=== PATIENT | male | born 1990 | race Hispanic/Latino ===

== ENCOUNTER 2022-10-15 16:34 | Emergency (ER) | payer OTHER ==
[2022-10-15] MEDS ORDERED: LIDOCAINE 1% W/EPI 1:100,000 50 ML MDV ONE (16:54)
[2022-10-15] MEDS ORDERED: DERMABOND SKIN ADHESIVE TOP ONE (17:22)
--- NOTE | 2022-10-15 18:22 | RAD REPORT ---
EXAM DESCRIPTION: CT - Head Brain Wo Cont - 10/15/2022 6:00 pm CLINICAL HISTORY: Head injury. Head struck by gate COMPARISON: None TECHNIQUE: Computed axial tomography of the head was obtained. IV contrast was not requested. All CT scans are performed using dose optimization technique as appropriate and may include automated exposure control or mA/KV adjustment according to patient size. FINDINGS: Left occipital scalp laceration. An intracranial bleed is not seen The ventricles are normal in caliber No extra-axial fluid collection is noted. No significant hypodensity within the brain Fluid within the sinuses/ mastoids is not seen. IMPRESSION: No acute intracranial abnormality is seen If patient's symptoms persist MRI of the brain would be recommended
--- NOTE | 2022-10-15 18:33 | ER ---
Nurse's Notes [facility] Name: Iván Pagan Age: 32 yrs Sex: Male : 1990 Arrival Date: 10/15/2022 Time: 16:34 Bed 12 Private MD: Diagnosis: Laceration without foreign body of scalp;Facial Laceration/ Laceration without foreign body of cheek and temporomandibular area Presentation: 10/15 16:40 Chief complaint: EMS states: HEAD STRUCK BY GATE, LAC TO LEFT OCCIPUT AND RIGHT BROW. bp Coronavirus screen: At this time, the client does not indicate any symptoms associated with coronavirus-19. Ebola Screen: No symptoms or risks identified at this time. Initial Sepsis Screen: Does the patient meet any 2 criteria? No. Patient's initial sepsis screen is negative. Does the patient have a suspected source of infection? No. Patient's initial sepsis screen is negative. Risk Assessment: Do you want to hurt yourself or someone else? Patient reports no desire to harm self or others. Onset of symptoms was October 15, 2022 at 15:30. 16:40 Method Of Arrival: EMS bp 16:40 Acuity: MADDIE 3 bp Triage Assessment: 16:42 General: Appears in no apparent distress. Behavior is calm, cooperative, appropriate bp for age. Pain: Complains of pain in scalp. EENT: No deficits noted. Neuro: No deficits noted. Cardiovascular: No deficits noted. Respiratory: No deficits noted. GI: No signs and/or symptoms were reported involving the gastrointestinal system. : No signs and/or symptoms were reported regarding the genitourinary system. Derm: No deficits noted. Musculoskeletal: No deficits noted. Injury Description: Laceration sustained to scalp and outer aspect of right eyebrow. Historical: - Allergies: 16:42 No Known Allergies; bp - Home Meds: 16:42 None [Active]; bp - PMHx: 16:42 None; bp - Immunization history:: Adult Immunizations up to date, Last tetanus immunization: up to date. - Social history:: Smoking status: Patient denies any tobacco usage or history of. Screenin:43 [facility] ED Fall Risk Assessment (Adult) History of falling in the last 3 months, bp including since admission No falls in past 3 months (0 pts). Abuse screen: Denies threats or abuse. Denies injuries from another. Nutritional screening: No deficits noted. Tuberculosis screening: No symptoms or risk factors identified. Assessment: 16:43 General: SEE TRIAGE NOTE. bp 18:05 Reassessment: PT RETURNED FROM CT. bp 18:41 Reassessment: DC WITH [facility]. bp Vital Signs: 16:40 BP 112 / 72; Pulse 59; Resp 16; Temp 98.4; Pulse Ox 99% ; Weight 117.93 kg; bp ED Course: 16:38 Patient arrived in ED. bs3 16:39 Kirill Casanova MD is Attending Physician. bs3 16:40 Abdirahman Smith, RN is Primary Nurse. bp 16:42 Triage completed. bp 16:42 Arm band placed on. bp 16:43 Patient has correct armband on for positive identification. Bed in low position. Call bp light in reach. Side rails up X2. Adult w/ patient. Security at bedside. 18:02 CT Head Brain wo Cont In Process Unspecified. EDMS 18:41 Assist provider with laceration repair on outer aspect of right eyebrow and scalp. bp Patient did not have IV access during this emergency room visit. Administered Medications: 17:05 Drug: Lidocaine-Epinephrine Infiltration -1%: (1:100,000) 12 ml Volume: 20 ml; Route: bp Infiltration; Medication: 16:43 VIS not applicable for this client. bp Outcome: 18:32 Discharge ordered by . bs3 18:41 Discharged to Law Enforcement bp 18:41 Condition: stable 18:41 Discharge instructions given to patient, police, Instructed on discharge instructions, follow up and referral plans. wound care, Demonstrated understanding of instructions, follow-up care, wound care. 18:42 Patient left the ED. bp Signatures: Dispatcher [employer] EDMS Abdirahman Smith, RN RN Kirill Crowder MD MD bs3
--- NOTE | 2022-10-15 18:33 | EDPHYS ---
Physician Documentation [facility] Name: Iván Pagan Age: 32 yrs Sex: Male : 1990 Arrival Date: 10/15/2022 Time: 16:34 Bed 12 Private MD: ED Physician Kirill Casanova HPI: 10/15 16:42 This 32 yrs old Male presents to ER via EMS with complaints of head injury. bs3 16:42 32-year-old male no significant past medical history presents with laceration to his bs3 right eyebrow into the back of his head he states that his head got stuck in a sliding door in shelter he denies loss of consciousness but feels like there is a defect in the back of his scalp and it feels numb in this area he does not know the last time he got a tetanus shot but does not want one today he denies any other injuries. Historical: - Allergies: 16:42 No Known Allergies; bp - Home Meds: 16:42 None [Active]; bp - PMHx: 16:42 None; bp - Immunization history:: Adult Immunizations up to date, Last tetanus immunization: up to date. - Social history:: Smoking status: Patient denies any tobacco usage or history of. ROS: 16:42 Constitutional: Negative for fever, chills bs3 16:42 All other systems are negative. Exam: 16:42 Constitutional: This is a well developed, well nourished patient who is awake, alert, bs3 and in no acute distress. Head/Face: He has a 5 cm laceration on the posterior scalp he has 2 superficial lacerations to his right eyebrow Eyes: Pupils equal round and reactive to light, extra-ocular motions intact. Lids and lashes normal. ENT: mmm, no posterior phyarngeal erythema Neck: Trachea midline, no thyromegaly, no neck stiffness Chest/axilla: Normal chest wall appearance and motion. Nontender with no deformity. No lesions are appreciated. Cardiovascular: Regular rate and rhythm with a normal S1 and S2. symmetric pulses in upper extremities MS/ Extremity: Pulses equal, no cyanosis. Neurovascular intact. Full, normal range of motion. Neuro: Awake and alert, GCS 15, oriented to person, place, time, and situation. Cranial nerves II-XII grossly intact. Motor strength 5/5 in all extremities. Sensory grossly intact. Psych: Awake, alert, with orientation to person, place and time. Behavior, mood, and affect are within normal limits. Vital Signs: 16:40 BP 112 / 72; Pulse 59; Resp 16; Temp 98.4; Pulse Ox 99% ; Weight 117.93 kg; bp Procedures: 18:30 Performed Laceration repair. His posterior scalp laceration was cleaned with copious bs3 irrigation I used 3 cc of lidocaine with epi 1% to anesthetize the area and then 7 shaheen were used to close the skin the patient tolerated the procedure without complication there was minimal bleeding. Laceration: 17:41 Wound Repair of 2cm ( 0.8in ) subcutaneous laceration to face. Distal bs3 neuro/vascular/tendon intact. Anesthesia: Local anesthetic administered with 2 mls of 1% lidocaine w/ Epi. Wound prep: Simple cleansing with hibiclenz by nj, Copious irrigation. Skin closed with 3 4-0 Prolene using simple sutures and sterile technique. Dressed with Bacitracin. Patient tolerated well. 17:41 Wound Repair of 1.5cm ( 0.6in ) subcutaneous laceration to face. Irregularly shaped.. bs3 Distal neuro/vascular/tendon intact. Anesthesia: Local anesthetic administered with 2 mls of 1% lidocaine w/ Epi. Wound prep: Simple cleansing with hibiclenz, Copious irrigation. Skin closed with 1 4-0 Prolene using simple sutures and sterile technique. Dressed with Bacitracin. Patient tolerated well. MDM: 16:39 Patient medically screened. bs3 16:42 Data reviewed: vital signs, nurses notes. ED course: Given the patient's concern for a bs3 defect in his scalp will r/o ich, pt refused updated tetanus, will close tetanus. 18:30 Differential diagnosis: Contusion of head, Hematoma on Laceration of scalp, face. ED bs3 course: No intercranial hemorrhage lacerations repaired will discharge home. 10/15 16:40 Order name: CT Head Brain wo Cont; Complete Time: 18:28 bs3 Administered Medications: 17:05 Drug: Lidocaine-Epinephrine Infiltration -1%: (1:100,000) 12 ml Volume: 20 ml; Route: bp Infiltration; Disposition Summary: 10/15/22 18:32 Discharge Ordered Location: Home bs3 Problem: new bs3 Symptoms: have improved bs3 Condition: Stable bs3 Diagnosis - Laceration without foreign body of scalp bs3 - Facial Laceration/ Laceration without foreign body of cheek and temporomandibular bs3 area Followup: bs3 - With: Private Physician - When: 1 week - Reason: Re-evaluation by your physician Discharge Instructions: - Discharge Summary Sheet bs3 - Laceration Care, Adult, [id number] bs3 - Facial Laceration, [id number] bs3 Forms: - Medication Reconciliation Form bs3 - Thank You Letter bs3 - Antibiotic Education bs3 - Prescription Opioid Use bs3 Signatures: Dispatcher [employer] Abdirahman Paz, PAULA RN Kirill Crowder MD MD bs3
[2022-10-15 18:59] VITALS: BP 112/72; TEMP 98.4; O2SAT 99
== END 2022-10-15 18:42 | disposition home or self-care (01) ==
LOC: ER 16:34
PROC: 0HQ0XZZ Repair Scalp Skin, External Approach (ICD-10-PCS; principal; 2022-10-15)
DX: S01.01XA Laceration without foreign body of scalp, initial encounter (principal); S01.411A Laceration without foreign body of right cheek and temporomandibular area, initial encounter
CPT/HCPCS: 70450; 99285